=== PATIENT | female | born 1970 | race Caucasian/White ===

== ENCOUNTER 2020-04-20 17:00 | Emergency (ER) | payer MEDICARE, MEDICAID, SELFPAY ==
[2020-04-20 17:02] VITALS: BP 178/98; PULSE 78; RESP 18; TEMP 36.9; O2SAT 93; BMI 21.1
--- NOTE | 2020-04-20 17:02 | USCV_ITS ---
Talia Mcfarlane Age: 50 Gender: F : 1970 Exam Date: 04/20/2020 17:33 Ordering Phys: Yusuf Villanueva MD Technologist: DEBBIE HENRIQUEZ Exam Location: [facility] [place] Indication: NUMB LT FOOT Risk Factors: Previous Vascular Surgery: RIGHT LEFT BP: 200.0 / 90.00 BP: 200.0/ 90.00 0 0 Waveform Velocity (cm/s) Velocity (cm/s) Waveform Iliac Prox 71.8 Triphasic Iliac Mid 62.6 Biphasic Iliac Distal 76.3 Triphasic MEDIA COORDINATOR Biphasic 74.0 SFA Prox 53.5 Monophasic SFA Mid 57.6 Monophasic SFA Dist 101.2 Monophasic POP 51.4 Biphasic 100 CLIENT SERVICES MANAGER 7.5 Monophasic DPA 11.4 Monophasic 0.5 ARTHUR 0.3 FINDINGS Markedly diminished resting ARTHUR on the left side Moderate limits resting ARTHUR on the right side Monophasic and continuous waveforms in the popliteal and posterior tibial artery on the left side CONCLUSIONS 1. Abnormal resting ARTHUR on the left side, suggestive of severe peripheral artery disease with features of collateral filling of the popliteal and posterior tibial artery. 2. Abnormal resting ARTHUR on the right side suggestive of moderately severe peripheral artery disease No previous studies are available for comparison Dr Vinita Eller MD [facility] (Electronically Signed) Final Date: 20 April 2020 21:33 S
[2020-04-20 17:42] LABS: Basophils # 0.1 10^3/uL (0.0-0.1); Basophils % 1.3 %; Eosinophils # 0.4 10^3/uL (0.0-0.8); Eosinophils % 4.9 %; Hematocrit 37.3 % (37.0-47.0); Hemoglobin 11.6 g/dL (11.5-15.3); Lymphocytes # 2.3 10^3/uL (0.8-4.8); Lymphocytes % 26.5 %; Mean Corpuscular HGB Conc 31.1 g/dL (30.0-36.0); Mean Corpuscular Hemoglobin 30.3 pg (28.0-34.0); Mean Corpuscular Volume 97.4 fL (81-99); Monocytes # 0.5 10^3/uL (0.2-0.9); Neutrophils # 5.2 10^3/uL (1.8-7.7); Neutrophils % 61.1 %; Nucleated Red Blood Cells % 0 %; Platelet Count 296 10^3/cmm (130-400); Red Blood Count 3.83 10^6/uL (4.1-5.3); Red Cell Distribution Width 18.7 % (12.1-15.1); White Blood Count 8.5 10^3/uL (4.0-10.0)
[2020-04-20 18:03] VITALS: BP 190/115; PULSE 78; RESP 17; O2SAT 98
[2020-04-20 18:05] LABS: INR 0.94 (0.8-1.2)
--- NOTE | 2020-04-20 18:11 | ED_ITS ---
HPI - Extremity Problem General: Chief complaint: Extremity Problem,Nontraumatic Stated complaint: left leg numbness Time Seen by Provider: 04/20/20 17:57 Source: patient Mode of arrival: ambulatory Limitations: no limitations History of Present Illness: HPI Narrative: 50-year-old female who has a rare vascular disease RVCL. 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 Patient states she has had some numbness to her left foot along with left leg pain when walking. States the pain is mild in nature. She denies any other problems. She denies any fever. Complaint: extremity pain Onset (ago): day(s) Associated symptoms: Deny fever(s) or rash Review of Systems Const: Denies: fever(s), chills, body aches or change in appetite Eyes: Denies: blurry vision or eye discomfort ENMT: Denies: throat pain or dental pain Card: Reports: leg pain with exertion Resp: Denies: dyspnea GI: Denies: abdominal pain, nausea, vomiting or diarrhea : Denies: dysuria Musc: Denies: neck pain or back pain Skin/Breast: Denies: rash Neuro: Denies: headache(s) Psych: Denies: depression Stevo/Lymph: Denies: easy bruising All/Imm: Denies: urticaria PFSH ED PFSH: Family History Other Diabetes Heart disease Hypertension Hypothyroidism Social History Smoking and tobacco status: current every day smoker cigarettes Packs smoked per day: 1 Alcohol intake: never Lives independently: Yes Household members: spouse Housing: House Marital status: History of recent travel: No Physical Exam Const: COMMON NORMALS: no acute distress, patient oriented x3 and healthy appearing HENMT: COMMON NORMALS: normocephalic and atraumatic HEAD & SCALP: normocephalic and atraumatic Eye: COMMON NORMALS: Equal, round and reactive pupils present and EOMs intact bilaterally PUPIL: Yes Equal, round and reactive pupils present Neck/C-Spine: COMMON NORMALS: full ROM and supple Chest: COMMONS NORMALS: normal inspection of the chest and normal palpation of entire chest wall Resp: COMMON NORMALS: normal respiratory effort, No retractions, No use of accessory muscles and clear to auscultation bilaterally AUSCULTATION: clear to auscultation bilaterally Cardio: COMMON NORMALS: regular rate, regular rhythm and No murmurs present (Cardio) RATE: regular rate RHYTHM: regular rhythm GI: COMMON NORMALS: Normal to inspection, nondistended, normoactive bowel sounds present, Soft to palpation, non-tender and no masses PALPATION: Yes Soft to palpation Extremity: COMMON NORMALS: normal to inspection and full ROM NARRATIVE EXTREMITY EXAM: Left foot lightly cooler than right foot but is not cold to touch. She has no pain to palpation. Neuro: COMMON NORMALS: patient oriented x3, moves all extremities and no focal motor deficits Psych: COMMON NORMALS: mental status grossly normal, Normal thought process present and cooperative THOUGHT PROCESS: Normal thought process present Skin: COMMON NORMALS: no rashes or lesions noted and no wounds GENERAL SKIN EXAM: no rashes or lesions noted Course Vital Signs: Vital signs: Vital Signs Temperature 98.5 F 04/20/20 17:02 Pulse Rate 96 04/20/20 21:30 Respiratory Rate 17 04/20/20 21:30 Blood Pressure 134/85 04/20/20 21:30 Pulse Oximetry 95 04/20/20 21:30 Critical Care Time Critical Care Time: Critical Care Time: Yes Total Critical Care Time: 35 Attestation: This case had a high probability of a clinically significant, sudden, or life threatening deterioration of this patient's condition which required my full and direct attention, intervention and personal management. MDM - Extremity (Nontraumatic) MDM Narrative: Medical decision making narrative: Patient presents with limb ischemia to left lower leg. Was originally going to transfer to [facility] that spoke to vascular surgeon Dr. Mcduffie there. He had excepted but they were on divert. And spoke to vascular surgeon at [facility] will transfer there. Patient transferred as we do not have vascular surgery [facility] at this time. Patient has been stable here and started on a heparin drip. Lab Data: Labs: Lab Results 04/20/20 04/20/20 04/20/20 Range/Units 17:20 17:20 17:20 WBC 8.5 (4.0-10.0) 10^3/ uL RBC 3.83 L (4.1-5.3) 10^6/u L Hgb 11.6 (11.5-15.3) g/dL Hct 37.3 (37.0-47.0) % MCV 97.4 (81-99) fL MCH 30.3 (28.0-34.0) pg MCHC 31.1 (30.0-36.0) g/dL RDW 18.7 H (12.1-15.1) % Plt Count 296 (130-400) 10^3/c mm MPV 9.0 (7.4-10.4) fL Neut % (Auto) 61.1 % Lymph % (Auto) 26.5 % Hardy % (Auto) 6.0 % Eos % (Auto) 4.9 % Baso % (Auto) 1.3 % Neut # (Auto) 5.2 (1.8-7.7) 10^3/u L Lymph # (Auto) 2.3 (0.8-4.8) 10^3/u L Hardy # (Auto) 0.5 (0.2-0.9) 10^3/u L Eos # (Auto) 0.4 (0.0-0.8) 10^3/u L Baso # (Auto) 0.1 (0.0-0.1) 10^3/u L Nucleated RBC % (a uto) 0 % Nucleated RBCs # 0.0 /100WBC PT 12.80 (10.5-13.3) SECO NDS INR 0.94 (0.8-1.2) Sodium 139 (136-145) mmol/L Potassium 4.1 (3.5-5.1) mmol/L Chloride 104 (98-107) mmol/L Carbon Dioxide 25 (22-29) mmol/L Anion Gap 14.1 (5-19) BUN 12 (6-20) mg/dL Creatinine 0.9 (0.5-0.9) mg/dL GFR Calculation 66.5 L (90-130) mL/min Glucose 98 (65-115) mg/dL Calculated Osmolal ity 284 L (285-295) mOsm/k g Calcium 9.4 (8.5-10.5) mg/dL Imaging Data^: US Vascular: Attestation: I personally reviewed and interpreted this imaging study as follows: Radiologist's impression: Decreased flow to left lower leg with disease noted at popliteal. ARTHUR of 0.3. 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
[2020-04-20 18:17] LABS: Anion Gap 14.1 (5-19); Blood Urea Nitrogen 12 mg/dL (6-20); Calcium 9.4 mg/dL (8.5-10.5); Carbon Dioxide 25 mmol/L (22-29); Chloride 104 mmol/L (98-107); Glomerular Filtration Rate 66.5 mL/min (90-130); Glucose 98 mg/dL (65-115); Osmolality Calculated 284 mOsm/kg (285-295); Potassium 4.1 mmol/L (3.5-5.1); Sodium 139 mmol/L (136-145)
[2020-04-20] MEDS: heparin 5,000 unit/mL INJ 1 mL 3900 UNIT IVP (18:44)
[2020-04-20] MEDS: heparin drip 25,000 UNIT/500 ML PREMIX 13.4 UNIT IV (18:55)
[2020-04-20 19:41] VITALS: BP 213/116; PULSE 82; RESP 20; O2SAT 95
[2020-04-20] MEDS: hyDRALAzine 20 mg/mL INJ 1 mL 10 MG IVP (19:46)
[2020-04-20 21:30] VITALS: BP 134/85; PULSE 96; RESP 17; O2SAT 95
[2020-04-20 22:47] VITALS: BP 121/60; PULSE 82; RESP 18; O2SAT 96
--- NOTE | 2020-04-20 22:57 | PC.NURSE ---
Report called to Tasneem Dunn. Danny. awaiting transportation
== END 2020-04-21 01:01 | disposition other institution (70) ==
PROVIDERS: Emergency Provider Emergency Medicine; PCP Nurse Practitioner Family
DX: I99.8 Other disorder of circulatory system (principal); F17.210 Nicotine dependence, cigarettes, uncomplicated; M79.605 Pain in left leg
CPT/HCPCS: 12345; 36415; 80048; 85025; 85610; 93926; 96365; 96366; 96372; 96375; 99283; 99285; J0360; J1644

== ENCOUNTER 2020-06-08 13:49 | Outpatient (CLI) | payer MEDICARE, MEDICAID, SELFPAY ==
--- NOTE | 2020-06-08 13:56 | CT_ITS ---
WS: [id number] CTA ABDOMINAL AORTA WITH RUNOFF TECHNIQUE: Contrast enhanced CTA of the abdominal aorta with bilateral lower extremity runoff. Multip lanar reformatted images were obtained. MIP reformats were also reviewed. CLINICAL INFORMATION: ATHEROSCLEROSIS OF BLACKFEET ARTERIES OF EXTREMITIES COMPARISON: None. DLP: 1025.[address] scans at [facility] use at least one of these dose optimization techniques: automat ed exposure control; mA and/or kV adjustment per patient size (includes targeted exams where dose is matched to clinical indication); or iterative reconstruction. FINDINGS: Lung bases are well aerated. Subsegmental atelectasis left lower lobe. Diffuse fatty infilt ration of the liver. Splenic granulomas. Normal pancreas. Normal GE junction. Celiac artery bypass gr aft is patent. Associated supply to the SMA. Left renal artery is patent. Tiny patent right renal art caitlin. Normal renal parenchymal enhancement. No hydronephrosis. Normal caliber abdominal aorta with mod erate atheromatous disease. Cortical atrophy right kidney. RIGHT: Right common iliac artery is occluded at the origin. Right external iliac artery is patent. In ternal iliac artery is patent. Heavily calcified iliac arteries. Right common femoral artery is paten t with approximately 30% narrowing. Right superficial femoral and deep femoral arteries are patent. S FA is patent to the adductor hiatus. Mild segmental narrowing involving the popliteal artery which re vanessa patent. Moderate to severe stenosis involving popliteal artery just above the knee. Popliteal artery is patent to the trifurcation. Three-vessel runoff to the ankle. LEFT: Left common iliac artery is patent with heavily calcified atheromatous disease. External and in ternal iliac arteries are patent. Common femoral artery is patent. Fem-pop bypass graft with associat ed seroma and surgical clips involving the proximal thigh and groin. Bypass graft in the medial thigh extending to the popliteal artery is patent. Femoropopliteal bypass graft is patent. Three-vessel ru noff in the proximal calf. Although only single vessel anterior tibial runoff distally. CT/CT angio abd aorta runof [id number] IMPRESSION: 1. 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 2. Moderate to severe stenosis involving the right distal popliteal artery jus t above the knee. Three-vessel runoff the right lower extremity. 3. Left femoropopliteal bypass graft which is patent. Three-vessel runoff in t he proximal left calf with only single vessel anterior tibial runoff distally.
--- NOTE | 2020-06-08 13:56 | USCV_ITS ---
Talia Mcfarlane Age: 50 Gender: F : 1970 Exam Date: 06/08/2020 14:12 Ordering Phys: Gage De La Vega MD Technologist: Lupis Winchester [place]am Location[place] [facility] [place] Indication: ATHEROSCLEROSIS Risk Factors: Smoker Previous Vascular Surgery: LEFT BYPASS GRAFT RIGHT LEFT BP: 146.0 / BP: 140.0/ 0 0 Waveform Velocity (cm/s) Velocity (cm/s) Waveform Monophasic 68.7 Iliac Prox 71.1 Biphasic Monophasic Iliac Mid Biphasic 69.2 62.5 Monophasic 56.9 Iliac Distal 69.1 Biphasic Monophasic 110.3 CONFERENCE ORGANIZER 63.0 Biphasic Monophasic 50.0 SFA Prox 59.0 Biphasic Monophasic 57.7 SFA Mid 62.0 Biphasic Monophasic 73.0 SFA Dist Monophasic 40.7 POP 107.1 Biphasic Monophasic 16.0 GLAZIER APPRENTICE 24.2 Monophasic Monophasic 18.6 DPA 99.5 Biphasic ARTHUR 1.1 0.8 FINDINGS PROXIMAL LT BYPASS 71.1 MID LT BYPASS 78.4 DISTAL BYPASS 100.6 DISTAL ANASTOMOSIS 57.1 Diminished resting ARTHUR on the right side Normal resting ARTHUR on the left side The iliopopliteal bypass appeared to be patent with normal Doppler velocities Total of 10 systems were reviewed. Except for the ones which are mentioned below, other system review were unremarkable Doppler flow signals were noted in the distal superficial femoral artery CONCLUSIONS 1. Abnormal resting ARTHUR on the right side, suggestive of mild peripheral artery disease 2. Patent bypass graft on the left side,? Iliopopliteal 3. Features of total occlusion of the distal superficial femoral artery on the left side with patent common femoral, proximal and mid superficial femoral arteries. 4. Normal resting ARTHUR on the left side 5. Compared to the study from 04/20/2020, there is improvement of the resting ARTHUR on the right side and bypass grafting on the left side Dr Vinita Eller MD [facility] (Electronically Signed) Final Date: 10 June 2020 17:35 S
[2020-06-08] MEDS: iohexol 350 mg/mL 100 mL Btl IV (14:56)
== END 2020-06-08 13:50 | disposition home or self-care (01) ==
LOC: CT 13:51
PROVIDERS: PCP Nurse Practitioner Family; Visit Provider Surgery
DX: I70.222 Atherosclerosis of native arteries of extremities with rest pain, left leg (principal); I70.8 Atherosclerosis of other arteries
CPT/HCPCS: 75635; 93925

== ENCOUNTER 2020-09-28 10:01 | Outpatient (CLI) | payer MEDICARE, MEDICAID, SELFPAY ==
--- NOTE | 2020-09-28 10:14 | CT_ITS ---
WS: [id number] CTA HEAD AND NECK TECHNIQUE: Contrast enhanced CTA of the head and neck with coronal and sagittal reformatted images an d maximum intensity projection (MIP) images. NASCET criteria utilized. CLINICAL INFORMATION: CVA COMPARISON: CTA chest 8 28,017 DLP: 1469.[address] scans at [facility] use at least one of these dose optimization techniques: automat ed exposure control; mA and/or kV adjustment per patient size (includes targeted exams where dose is matched to clinical indication); or iterative reconstruction. FINDINGS: RIGHT: Right common carotid artery is patent. Moderate calcified atheromatous disease right carotid b ulb extending into the ICA. No significant right ICA stenosis. ICA is patent to the skull base. LEFT: Left common carotid artery is occluded at the origin at the aortic arch. This is completely occ luded to the bifurcation. This is new since the CTA chest in 2017. Tiny amount of reconstitution at t he bifurcation with a small amount of string-like ICA flow to the skull base. Moderate calcified athe romatous disease left carotid bulb. INTRACRANIAL CTA: Relative symmetric flow to the MCA territory bilaterally. Only a tiny amount of lef t ICA flow at the skull base. Patent anterior communicating artery. Small left A1 segment. Middle cer ebral arteries are patent. Codominant and patent vertebral arteries bilaterally. Basilar artery is patent. Normal vascularity to the EMPLOYEE RELATIONS MANAGER territory bilaterally. Mastoid air cells and paranasal sinuses are well aerated. No CT evidence of acute ischemia. Chronic e mphysematous changes in the lung apices. CT/CT angio headneck* [id number] IMPRESSION: 1. Left common carotid artery is occluded at the origin and is occluded to the carotid bulb bifurcation. Tiny amount of string like flow in the left ICA to t he skull base. 2. Relative symmetric flow to the MCA territory bilaterally. Patent anterior c ommunicating artery. Small left A1 segment. 3. No CT evidence of acute ischemia. 4. No significant right ICA stenosis. Moderate calcified atheromatous disease both carotid bulbs. 5. Codominant and patent vertebral arteries bilaterally. Basilar artery is pat ent. Notified Cara Billings APN at 09/28/2020 11:31 AM.
[2020-09-28] MEDS: iohexol 350 mg/mL 100 mL Btl IV (10:29)
== END 2020-09-28 10:02 | disposition home or self-care (01) ==
PROVIDERS: PCP Nurse Practitioner Family; Visit Provider Nurse Practitioner Family
DX: I63.9 Cerebral infarction, unspecified (principal); I65.22 Occlusion and stenosis of left carotid artery
CPT/HCPCS: 70496; 70498

== ENCOUNTER → 2020-10-21 11:49 | Outpatient (BNVA) | payer MEDICARE, MEDICAID, SELFPAY | PROVIDERS: PCP Nurse Practitioner Family; Visit Provider Nurse Practitioner Family | DX: Z20.828 Contact with and (suspected) exposure to other viral communicable diseases (principal); J06.9 Acute upper respiratory infection, unspecified | CPT/HCPCS: 87635 ==

== ENCOUNTER 2020-12-27 16:06 | Emergency (ER) | payer MEDICARE, MEDICAID, SELFPAY ==
[2020-12-27 16:09] VITALS: BP 205/102; PULSE 82; RESP 18; TEMP 36.6; O2SAT 91; BMI 18.8
--- NOTE | 2020-12-27 16:14 | USR_ITS ---
PROCEDURE INFORMATION: Exam: US Duplex Left Lower Extremity Arteries Or Arterial Bypass Grafts Exam date and time: 12/27/2020 4:21 PM Age: 50 years old Clinical indication: Pain; Leg, lower; Left; Prior surgery; Surgery date: 6+ months; Surgery type: Bypass graft; Additional info: Left lower extremity pain. H/o bypass TECHNIQUE: Imaging protocol: Left Real-time duplex scan of the arteries or arterial bypass grafts of the left lower extremity with 2-D portillo scale, color Doppler flow and spectral waveform analysis. Images documented and saved. COMPARISON: No relevant prior studies available. FINDINGS: Left external iliac artery: Left external iliac artery is patent. Biphasic waveforms demonstrated. Left common femoral artery: Left common femoral artery is patent. Biphasic waveform is demonstrated. Left superficial femoral artery: There is a left femoral to popliteal bypass graft. The graft is occluded. The left superficial femoral artery is patent throughout. However, there are severely elevated distal left SFA velocities, indicating severe distal SFA stenosis. Left popliteal artery: Left popliteal artery is occluded. Left calf/foot arteries: Left infrapopliteal arteries appear occluded. US/[place] [id number] IMPRESSION: 1. There is a left femoral to popliteal bypass graft. The graft is occluded. 2. There are severely elevated distal left SFA velocities, indicating severe distal SFA stenosis. 3. Left popliteal artery is occluded. 4. Left infrapopliteal arteries appear occluded.
--- NOTE | 2020-12-27 16:19 | CTR_ITS ---
PROCEDURE INFORMATION: Exam: CTA Angiogram of the Abdominal Aorta and Bilateral Lower Extremities (Run-off) With IV Contrast Exam date and time: 12/27/2020 4:36 PM Age: 50 years old Clinical indication: Prior surgery; Surgery date: 6+ months; Surgery type: Fem pop; Patient HX: Lle cold and painful; Additional info: Left lower extremity cold TECHNIQUE: Imaging protocol: CT angiogram of the abdominal aorta, pelvis and bilateral lower extremities with IV iodinated contrast. 3D rendering (Not supervised by radiologist): MIP and/or 3D reconstructed images were created by the technologist. Radiation optimization: All CT scans at this facility use at least one of these dose optimization techniques: automated exposure control; mA and/or kV adjustment per patient size (includes targeted exams where dose is matched to clinical indication); or iterative reconstruction. Contrast material: OMNI 350; Contrast volume: 75 ml; Contrast route: INTRAVENOUS (IV); COMPARISON: CT angio abd aorta runof [id number] 06/08/2020 2:45 PM RADIATION DOSE METRICS: Total DLP (mGy-cm): 984.72 FINDINGS: Aorta: Diffuse atherosclerosis of the abdominal aorta. No aneurysm or dissection. Celiac trunk and mesenteric arteries: The inferior mesenteric artery is severely stenotic at its origin. Renal arteries: No occlusion or significant stenosis. Right iliac arteries: Right common iliac artery demonstrates occlusion at the origin. Right external iliac artery reconstitutes via internal iliac collaterals. Right femoral/popliteal arteries: Right common femoral artery is mildly atherosclerotic with mild stenosis. Right superficial femoral artery demonstrates moderate disease distally with moderate stenosis. Right popliteal artery is atherosclerotic with mild to moderate stenosis distally. Right infrapopliteal arteries: Right infrapopliteal arteries are remarkable for occlusion of the peroneal artery above the ankle. Anterior and posterior tibials are patent to the foot. Left iliac arteries: Left common and external iliac arteries are atherosclerotic with moderate stenosis. Left femoral/popliteal arteries: The [place] proximal/mid left superficial femoral artery is patent, but demonstrates multiple severe stenoses in the adductor canal. The distal SFA is occluded. Left popliteal artery is occluded. Left infrapopliteal arteries: Left infrapopliteal arteries are unopacified. This may be secondary to lack of arterial inflow. Occlusion of the vessels is not excluded. Bypass grafts: There is a celiac/superior mesenteric artery bypass graft present. Graft is patent. The terminal branches appear patent. There is a left femoral to popliteal bypass graft. The graft is occluded. Lungs: 12 mm nodule versus atelectasis in the posterior left lower lobe. Liver: The liver is unremarkable in appearance. Gallbladder and bile ducts: The gallbladder is surgically absent. Pancreas: The pancreas is normal in appearance. No pancreatic duct dilatation. Spleen: Calcified granulomas are noted in the spleen. Adrenals: The adrenal glands appear within normal limits. Kidneys and ureters: Cortical atrophy of the right kidney. No solid mass in either kidney. No hydronephrosis. Stomach and bowel: Status post right hemicolectomy. No bowel obstruction. There is mural thickening of the descending and rectosigmoid portions of the colon. Multiple thickened small bowel loops are noted. This may indicate mild enterocolitis. Appendix: No evidence of appendicitis. Bladder: The urinary bladder is unremarkable in appearance. Reproductive: Uterus and adnexa appear unremarkable. Intraperitoneal space: Unremarkable. No free air. No significant fluid collection. Lymph nodes: No pathologically enlarged lymph nodes are demonstrated. Bones/joints: No acute fracture. No dislocation. Soft tissues: Unremarkable. CT/CT angio abd aorta runof [id number] IMPRESSION: 1. Right common iliac artery demonstrates occlusion at the origin. Right external iliac artery reconstitutes via internal iliac collaterals. 2. Right superficial femoral artery demonstrates moderate disease distally with moderate stenosis. 3. There is a left femoral to popliteal bypass graft. The graft is occluded. This represents a change from 06/08/2020. 4. The [place] proximal/mid left superficial femoral artery is patent, but demonstrates multiple severe stenoses in the adductor canal. The distal SFA is occluded. This is unchanged from the previous study. 5. Left popliteal artery is occluded. This is unchanged. 6. Left infrapopliteal arteries are unopacified. It is unclear whether this indicates occlusion of the arteries, or is related to lack of adequate inflow from occlusion of the femoral to popliteal bypass graft. 7. Findings of old granulomatous disease are identified. 8. 12 mm nodule versus atelectasis in the posterior left lower lobe. This is new when compared to 06/08/2020. For both low risk and high risk patients, consider CT Chest at 3 months, PET/CT or biopsy. (Reference: Dk) 9. Thickened loops of small bowel. Thickening of the remaining colon. Consider mild nonspecific enterocolitis. REFERENCES: Dk Osborne, et al. Guidelines for Management of Incidental Pulmonary Nodules Detected on CT Images: From the Fleischner Society 2017. Radiology. 2017;284(1):228-243. Radiation Dose CTDIVOL = (mGy): DLP = 984.72 (mGy-cm)
--- NOTE | 2020-12-27 16:26 | ECG_ITS ---
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 Measurements Intervals [place] Rate: 86 P: 77 MN: 196 QRS: 36 QRSD: 98 T: 83 QT: 373 QTc: 449 Interpretive Statements SINUS RHYTHM POSSIBLE LEFT ATRIAL ENLARGEMENT [-0.1mV P WAVE IN V1/V2] INDETERMINATE AXIS LOW QRS VOLTAGE IN EXTREMITY LEADS [QRS DEFLECTION < 0.5 mV IN LIMB LEADS] Compared to ECG 06/12/2017 13:02:26 Indeterminate axis now present Low QRS voltage now present Left-axis deviation no longer present Possible ischemia no longer present Electronically Signed On 12-27-2020 22:43:28 CDT by Vinita Eller M.D. [id number]
--- NOTE | 2020-12-27 16:26 | W.ED.EXTPRO ---
HPI - Extremity Problem General: Chief complaint: Extremity Problem,Nontraumatic Stated complaint: LEFT LOWER LEG PAIN Time Seen by Provider: 12/27/20 16:14 History of Present Illness: HPI Narrative: The patient is a 50-year-old female with past medical history of a bypass in her left leg approximately a year ago in [place] comes to the ER complaining today her left leg turned cold and is giving her severe pain. She was given 2 doses of 50 mcg fentanyl by EMS and she is crying in pain on arrival. I could not palpate pulses in the extremity Location: left and lower extremity Quality: sharp Relieving factors: nothing Associated symptoms: Reports no associated symptoms; Deny chest pain or rash Review of Systems General: Reports: 10 or more systems reviewed and unremarkable except in HPI and below Const: Denies: fatigue Eyes: Denies: change in vision, blurry vision or eye redness ENMT: Denies: throat pain, swelling of lips/tongue, ear or mastoid pain or nasal congestion Card: Denies: chest pain, palpitations, irregular heart rhythm, edema, dyspnea on exertion or orthopnea Resp: Denies: dyspnea, productive cough or non-productive cough GI: Denies: abdominal pain, diarrhea or GI cramping : Denies: flank pain, difficulty voiding, urinary frequency or urinary urgency Musc: Reports: extremity pain; Denies: neck pain, back pain, joint pain, joint redness, limited range of motion or muscle weakness Skin/Breast: Denies: rash, pruritus, erythema, skin pain or skin tenderness Neuro: Denies: headache(s), numbness in extremities, weakness in extremities, sensory changes, difficulty walking, dizziness, confusion or Slurred speech present Psych: Denies: anxiety or depression Endo: Denies: polyuria All/Imm: Denies: urticaria, throat swelling or tongue swelling PFSH ED PFSH: Medical History (Updated 12/27/20 @ 17:28 by José Fritz MD) COPD (chronic obstructive pulmonary disease) Hypothyroidism Surgical History History of colon resection (~2018) History of hernia surgery 2020 X2 Hx of appendectomy 2018 Hx of cholecystectomy 2018 Status post colonoscopy Family History Other Diabetes Heart disease Hypertension Hypothyroidism Social History Smoking and tobacco status: current every day smoker cigarettes Packs smoked per day: 1 Alcohol intake: never Lives independently: Yes Household members: spouse Housing: House Marital status: History of recent travel: No Physical Exam Const: COMMON NORMALS: no acute distress, average body habitus, patient oriented x3, no limitations, healthy appearing, alert and well nourished GENERAL APPEARANCE: cooperative, comfortable, well kempt and well developed ORIENTATION/CONSCIOUSNESS: Yes awake, Yes oriented to person, Yes oriented to place and Yes oriented to time HENMT: COMMON NORMALS: normocephalic, external ears normal and Normal external nose present HEAD & SCALP: normal to inspection and normocephalic NOSE: Normal external nose present EXTERNAL EAR: Yes external ears normal MOUTH: Normal oral and palatal mucosa present THROAT: posterior oropharynx normal Eye: COMMON NORMALS: Equal, round and reactive pupils present and EOMs intact bilaterally GENERAL EYE: appearance normal, both eyes and all related structures PUPIL: Yes Equal, round and reactive pupils present Neck/C-Spine: COMMON NORMALS: full ROM, no lymphadenopathy, no meningeal signs and no JVD GENERAL: Yes normal visual inspection Lymph: LYMPHATIC: no lymphadenopathy noted Chest: COMMONS NORMALS: normal inspection of the chest and normal palpation of entire chest wall Resp: COMMON NORMALS: normal respiratory effort, No retractions, No use of accessory muscles, clear to auscultation bilaterally and percussion normal EFFORT & INSPECTION: Yes able to speak in complete sentences AUSCULTATION: clear to auscultation bilaterally PERCUSSION: percussion normal Cardio: COMMON NORMALS: no JVD, regular rate, regular rhythm, S1 normal heart sound present, S2 normal heart sound present and Peripheral pulses 2+ throughout RATE: regular rate RHYTHM: regular rhythm HEART SOUNDS: S1 normal heart sound present and S2 normal heart sound present PERIPHERAL PULSES: Peripheral pulses 2+ throughout GI: COMMON NORMALS: Normal to inspection, nondistended, normoactive bowel sounds present, Soft to palpation, non-tender and no masses INSPECTION: Yes normal to inspection PALPATION: Yes Soft to palpation : COMMON NORMALS: Yes no CVA tenderness BLADDER/KIDNEY EXAM: Yes no CVA tenderness Back/Pelvis: COMMON NORMALS: no CVA tenderness, thoracic and lumbar spine normal to inspection, no thoracic nor lumbar tenderness and thoraco-lumbar ROM normal Extremity: COMMON NORMALS: normal to inspection, full ROM, capillary refill normal, no joint enlargement and no pedal edema NARRATIVE EXTREMITY EXAM: Right lower extremity normal. Pulses positive on Doppler. Left lower extremity cool with slow capillary refill. Not able to hear pulses with Doppler on my exam. GENERAL: Yes normal exam except as noted Neuro: COMMON NORMALS: patient oriented x3, CN's II-XII intact bilaterally, moves all extremities, no focal motor deficits, no sensory deficits noted and gait normal SENSORIUM/ORIENTATION: Yes alert, Yes oriented to person, Yes oriented to place and Yes oriented to time MENINGEAL SIGNS: Yes no meningeal signs Psych: COMMON NORMALS: mental status grossly normal, Normal thought process present, cooperative, normal affect and speech normal APPEARANCE: Yes well kempt ATTITUDE: Yes calm SPEECH: Yes normal speech THOUGHT PROCESS: Normal thought process present Skin: COMMON NORMALS: no rashes or lesions noted GENERAL SKIN EXAM: no rashes or lesions noted Course Vital Signs: Vital signs: Vital Signs Temperature 97.8 F 12/27/20 16:09 Pulse Rate 88 12/27/20 18:00 Respiratory Rate 18 12/27/20 18:00 Blood Pressure 205/121 12/27/20 18:00 Pulse Oximetry 97 12/27/20 18:00 MDM - Extremity (Nontraumatic) MDM Narrative: Medical decision making narrative: Prior to departure.Arterial Doppler of the left lower extremity shows no flow through the femoropopliteal graft she had. Complete occlusion. She is in CT angiogram right now. We do not have vascular surgery right now. Discussed transfer with her and she prefers [place]. Discussed with Dr. Hardin at [facility] who accepts for transfer. She was started on heparin Lab Data: Labs: Lab Results 12/27/20 12/27/20 12/27/20 Range/Units 16:47 16:47 16:47 WBC 7.3 (4.0-10.0) 10^3/ uL RBC 3.88 L (4.1-5.3) 10^6/u L Hgb 12.3 (11.5-15.3) g/dL Hct 38.1 (37.0-47.0) % MCV 98.2 (81-99) fL MCH 31.7 (28.0-34.0) pg MCHC 32.3 (30.0-36.0) g/dL RDW 16.5 H (12.1-15.1) % Plt Count 256 (130-400) 10^3/c mm MPV 9.5 (7.4-10.4) fL Neut % (Auto) 69.0 % Lymph % (Auto) 20.4 % Ballard % (Auto) 7.1 % Eos % (Auto) 1.8 % Baso % (Auto) 1.4 % Neut # (Auto) 5.03 (1.8-7.7) 10^3/u L Lymph # (Auto) 1.5 (0.8-4.8) 10^3/u L Ballard # (Auto) 0.5 (0.2-0.9) 10^3/u L Eos # (Auto) 0.1 (0.0-0.8) 10^3/u L Baso # (Auto) 0.1 (0.0-0.1) 10^3/u L Nucleated RBC % (a uto) 0 % Nucleated RBCs # 0.0 /100WBC Sodium 134 L (136-145) mmol/L Potassium 4.3 (3.5-5.1) mmol/L Chloride 100 (98-107) mmol/L Carbon Dioxide 22 (22-29) mmol/L Anion Gap 16.3 (5-19) BUN 10 (6-20) mg/dL Creatinine 0.7 (0.5-0.9) mg/dL GFR Calculation 88.9 L (90-130) mL/min Glucose 121 H (65-115) mg/dL Calculated Osmolal ity 278 L (285-295) mOsm/k g Lactate 0.7 (0.5-2.2) mmol/L Calcium 8.7 (8.5-10.5) mg/dL Total Bilirubin 0.2 (0.15-1.2) mg/dL AST 23 (0-32) U/L ALT 19 (0-33) U/L Alkaline Phosphata se 86 (35-105) IU/L Troponin T Baselin e (0-10) ng/L Total Protein 6.9 (6.6-8.7) g/dL Albumin 3.6 (3.5-5.2) g/dL Globulin 3.3 (1.3-4.6) g/dL Urine Color (Yellow) Urine Appearance (CLEAR) Urine pH (5-7) Ur Specific Gravit y (1.005-1.030) Urine Protein (Negative) Urine Glucose (UA) (Normal) Urine Ketones (Negative) Urine Blood (Negative) Urine Nitrate (Negative) Urine Bilirubin (Negative) Urine Urobilinogen (Negative) mg/dL Ur Leukocyte Luisa ase (Negative) SARS-CoV-2 Ag (Rap id) (Negative) 12/27/20 12/27/20 12/27/20 Range/Units 16:47 17:40 17:46 WBC (4.0-10.0) 10^3/ uL RBC (4.1-5.3) 10^6/u L Hgb (11.5-15.3) g/dL Hct (37.0-47.0) % MCV (81-99) fL MCH (28.0-34.0) pg MCHC (30.0-36.0) g/dL RDW (12.1-15.1) % Plt Count (130-400) 10^3/c mm MPV (7.4-10.4) fL Neut % (Auto) % Lymph % (Auto) % Ballard % (Auto) % Eos % (Auto) % Baso % (Auto) % Neut # (Auto) (1.8-7.7) 10^3/u L Lymph # (Auto) (0.8-4.8) 10^3/u L Ballard # (Auto) (0.2-0.9) 10^3/u L Eos # (Auto) (0.0-0.8) 10^3/u L Baso # (Auto) (0.0-0.1) 10^3/u L Nucleated RBC % (a uto) % Nucleated RBCs # /100WBC Sodium (136-145) mmol/L Potassium (3.5-5.1) mmol/L Chloride (98-107) mmol/L Carbon Dioxide (22-29) mmol/L Anion Gap (5-19) BUN (6-20) mg/dL Creatinine (0.5-0.9) mg/dL GFR Calculation (90-130) mL/min Glucose (65-115) mg/dL Calculated Osmolal ity (285-295) mOsm/k g Lactate (0.5-2.2) mmol/L Calcium (8.5-10.5) mg/dL Total Bilirubin (0.15-1.2) mg/dL AST (0-32) U/L ALT (0-33) U/L Alkaline Phosphata se (35-105) IU/L Troponin T Baselin e 22 H (0-10) ng/L Total Protein (6.6-8.7) g/dL Albumin (3.5-5.2) g/dL Globulin (1.3-4.6) g/dL Urine Color Colorless (Yellow) Urine Appearance Clear (CLEAR) Urine pH 5 (5-7) Ur Specific Gravit y 1.015 (1.005-1.030) Urine Protein Neg (Negative) Urine Glucose (UA) Norm (Normal) Urine Ketones Negative (Negative) Urine Blood Neg (Negative) Urine Nitrate Negative (Negative) Urine Bilirubin Neg (Negative) Urine Urobilinogen Norm (Negative) mg/dL Ur Leukocyte Luisa ase Negative (Negative) SARS-CoV-2 Ag (Rap id) Negative (Negative) Discharge Plan Discharge Patient Disposition: Xfer Short-Term Hosp Clinical Impression: Critical ischemia of lower extremity Condition: Stable Referrals: Manuelito,BUNNY Marroquin [Primary Care Provider] - Coding Level of Care Code ED [facility] [employer] T[employer] for Chg Fwd Exam Comprehensive
[2020-12-27 16:30] VITALS: RESP 16
[2020-12-27] MEDS: HYDROmorphone 1 mg/mL INJ 1 mL 0.5 MG IVP ×2 (16:30→18:12)
[2020-12-27] MEDS: cloNIDine 0.1 mg Tablet PO (16:33)
[2020-12-27] MEDS: sodium chloride 0.9% 500 ML IV (16:33)
[2020-12-27 16:34] VITALS: BP 210/109; PULSE 81; RESP 16; O2SAT 97
--- NOTE | 2020-12-27 16:40 | PC.NURSE ---
patient c/o severe pain to left lower leg, left foot cool to touch. pain medication iv given, no acute distress noted at this time.
[2020-12-27 17:13] LABS: Basophils # 0.1 10^3/uL (0.0-0.1); Basophils % 1.4 %; Eosinophils # 0.1 10^3/uL (0.0-0.8); Eosinophils % 1.8 %; Hematocrit 38.1 % (37.0-47.0); Hemoglobin 12.3 g/dL (11.5-15.3); Lymphocytes # 1.5 10^3/uL (0.8-4.8); Lymphocytes % 20.4 %; Mean Corpuscular HGB Conc 32.3 g/dL (30.0-36.0); Mean Corpuscular Hemoglobin 31.7 pg (28.0-34.0); Mean Corpuscular Volume 98.2 fL (81-99); Mean Platelet Volume 9.5 fL (7.4-10.4); Monocytes # 0.5 10^3/uL (0.2-0.9); Monocytes % 7.1 %; Neutrophils # 5.03 10^3/uL (1.8-7.7); Nucleated Red Blood Cells % 0 %; Platelet Count 256 10^3/cmm (130-400); Red Blood Count 3.88 10^6/uL (4.1-5.3); Red Cell Distribution Width 16.5 % (12.1-15.1); White Blood Count 7.3 10^3/uL (4.0-10.0)
[2020-12-27] MEDS: iohexol 350 mg/mL 100 mL Btl IV (17:21)
[2020-12-27 17:31] LABS: Lactate (Lactic Acid level) 0.7 mmol/L (0.5-2.2)
[2020-12-27] MEDS: heparin 5,000 unit/mL INJ 1 mL 3500 UNIT IVP (17:31)
[2020-12-27 17:32] LABS: Troponin(5th) Baseline 22 ng/L (0-10)
[2020-12-27 17:48] VITALS: BP 214/109; PULSE 97; RESP 16; O2SAT 97
[2020-12-27 17:51] VITALS: BP 214/109; PULSE 65; RESP 16; O2SAT 100
[2020-12-27 17:59] LABS: Add Urine Microscopic? NO
[2020-12-27 18:00] VITALS: BP 205/121; PULSE 88; RESP 18; O2SAT 97
[2020-12-27 18:01] LABS: Alanine Aminotransferase 19 U/L (0-33); Albumin Level 3.6 g/dL (3.5-5.2); Alkaline Phosphatase 86 IU/L (35-105); Blood Urea Nitrogen 10 mg/dL (6-20); Calcium 8.7 mg/dL (8.5-10.5); Carbon Dioxide 22 mmol/L (22-29); Chloride 100 mmol/L (98-107); Globulin 3.3 g/dL (1.3-4.6); Glomerular Filtration Rate 88.9 mL/min (90-130); Glucose 121 mg/dL (65-115); Osmolality Calculated 278 mOsm/kg (285-295); Sodium 134 mmol/L (136-145); Total Bilirubin 0.2 mg/dL (0.15-1.2); Total Protein 6.9 g/dL (6.6-8.7)
[2020-12-27 18:03] LABS: Anion Gap 16.3 (5-19); Aspartate Amino Transferase 23 U/L (0-32); Potassium 4.3 mmol/L (3.5-5.1)
[2020-12-27] MEDS: heparin drip 25,000 UNIT/500 ML PREMIX 14 UNIT IV (18:05)
[2020-12-27 18:12] LABS: Bilirubin Urine Neg (Negative); Blood Urine Neg (Negative); Glucose Urine UA Norm (Normal); Ketones Urine Negative (Negative); Leukocyte Esterase Urine Negative (Negative); Nitrate Urine Negative (Negative); Protein Urine Neg (Negative); Specific Gravity, Urine 1.015 (1.005-1.030); Urine Appearance Clear (CLEAR); Urine Color Colorless (Yellow); Urobilinogen Urine Norm (Negative); pH Urine 5 (5-7)
[2020-12-27] MEDS: hyDRALAzine 20 mg/mL INJ 1 mL 5 MG IVP (18:12)
[2020-12-27 18:41] LABS: SARS Covid-2 Antigen Negative (Negative)
== END 2020-12-27 18:30 | disposition short-term general hospital (02) ==
PROVIDERS: Emergency Provider Family Medicine; PCP Nurse Practitioner Family
DX: I70.322 Atherosclerosis of unspecified type of bypass graft(s) of the extremities with rest pain, left leg (principal); J44.9 Chronic obstructive pulmonary disease, unspecified; F17.210 Nicotine dependence, cigarettes, uncomplicated; M79.605 Pain in left leg
CPT/HCPCS: 75635; 80053; 81003; 83605; 84484; 85025; 87426; 93005; 93926; J0360; J1170; J1644; J7040; Q9967